=== PATIENT | female | born 1955 ===

== ENCOUNTER → 2018-09-03 10:52 | Outpatient (REF) | payer OTHER, SELFPAY ==
[2018-09-03 11:43] LABS: Cholesterol 181 mg/dL (140-199); Glucose Promotional 104 mg/dL (80-110); HDL Cholesterol 51 mg/dL (40-60); LDL Cholesterol Calculated 101 mg/dL (<100); Triglycerides 144 mg/dL (35-150)
== END ==
LOC: LAB 10:52
DX: Z13.1 Encounter for screening for diabetes mellitus (principal); Z13.220 Encounter for screening for lipoid disorders
CPT/HCPCS: 80061; 82947